=== PATIENT | male | born 1950 | race Caucasian/White ===

== ENCOUNTER 2022-03-13 22:41 | Emergency (ER) | payer MEDICARE, SELFPAY ==
--- NOTE | 2022-03-13 22:47 | ECG_ITS ---
[facility] Test Date: 2022-03-13 Pat Name: Matias Garza Department: Room: Gender: Male [employer]: : 1950 Requested By: Anibal Mendoza Order Number: [id number] Emely MD: Alberto Stone M.D. Measurements Intervals [place] Rate: 42 P: 69 HI: 237 QRS: -9 QRSD: 115 T: 37 QT: 466 QTc: 393 Interpretive Statements SINUS BRADYCARDIA WITH SINUS ARRHYTHMIA WITH FIRST DEGREE AV BLOCK MODERATE INTRAVENTRICULAR CONDUCTION DELAY [110+ ms QRS DURATION] No previous ECG available for comparison Electronically Signed On 03-13-2022 23:25:24 CDT by Alberto Stone M.D. [email or web address]
[2022-03-13 22:53] VITALS: BP 192/50; PULSE 43; RESP 18; TEMP 36.4; O2SAT 97; BMI 23.7
[2022-03-13 22:55] VITALS: BP 124/87; PULSE 76; RESP 18; O2SAT 99
--- NOTE | 2022-03-13 22:59 | W.ED.ABDPA2 ---
HPI - Abdominal Pain General: Chief Complaint: Abdominal Pain Stated Complaint: abd pain, N/V Time Seen by Provider: 03/13/22 22:58 History of Present Illness: 71-year-old male patient comes in today with mid abdominal pain. Patient reports that the pain was so bad he was on the floor with discomfort. Patient did have several episodes of dry heaves with clear liquid. Patient reports some improvement in pain and discomfort since arriving to the ER. Associated Symptoms: Reports nausea and vomiting Review of Systems General: Reports: 10 or more systems reviewed and unremarkable except in HPI and below Card: Denies: chest pain Resp: Denies: dyspnea GI: Reports: abdominal pain, nausea and vomiting : Denies: difficulty urinating Physical Exam Const: COMMON NORMALS: alert HENMT: HEAD & SCALP: normal to inspection Neck/C-Spine: COMMON NORMALS: full ROM Resp: COMMON NORMALS: normal respiratory effort and clear to auscultation bilaterally AUSCULTATION: clear to auscultation bilaterally Cardio: COMMON NORMALS: regular rate RATE: regular rate GI: AUSCULTATION: Yes normoactive bowel sounds PALPATION: Yes Tenderness to palpation present (GI) (Generalized, left lower quadrant) Details: LLQ : BLADDER/KIDNEY EXAM: Yes CVA tenderness on the left Back/Pelvis: GENERAL BACK: Yes CVA tenderness Neuro: SENSORIUM/ORIENTATION: Yes alert Skin: COMMON NORMALS: no rashes or lesions noted GENERAL SKIN EXAM: no rashes or lesions noted Course Vital Signs: Vital signs: Vital Signs Temperature 97.6 F 03/13/22 22:53 Pulse Rate 43 L 03/13/22 22:53 Respiratory Rate 18 03/13/22 22:53 Blood Pressure 192/50 03/13/22 22:53 Pulse Oximetry 97 03/13/22 22:53 MDM - Abdominal Pain Medical Decision Making Patient comes in today with complaints of abdominal pain with some emesis of clear fluid. Patient reports last time he ate was afternoon. On exam patient had some left CVA tenderness and left lower quadrant abdominal tenderness. Respirations were even lungs were clear to auscultation. Skin was warm and dry. Patient was afebrile. Differential diagnosis includes but not limited to pancreatitis, gallbladder disease, renal calculi, diverticulitis. CBC showed a white count 10,000, CMP noted normal liver enzymes and a creatinine 1.1. CT of the abdomen and pelvis noted a approximately a 4 mm stone in the mid ureter on the left side. Reviewed exam with patient recommended treatment for renal calculi. Patient was recommended to follow-up with primary care for further instruction. Return to ER as needed for worsening symptoms. Case management was requested for urology follow-up. Patient reported understanding of care plan need for follow-up or return to the ER. Lab Data : 03/13/22 23:10 03/13/22 23:10 Labs/Radiology: Laboratory Results WBC 10.2 10^3/uL (4.0-10.0) H 03/13/22 23:10 RBC 4.63 10^6/uL (4.1-5.3) 03/13/22 23:10 Hgb 14.1 g/dL (11.7-16.6) 03/13/22 23:10 Hct 41.6 % (42.0-52.0) L 03/13/22 23:10 MCV 89.8 fl (80-94) 03/13/22 23:10 MCH 30.5 pg (28.0-34.0) 03/13/22 23:10 MCHC 33.9 g/dL (30.0-36.0) 03/13/22 23:10 RDW 12.7 % (12.1-15.1) 03/13/22 23:10 Plt Count 195 10^3/cmm (130-400) 03/13/22 23:10 MPV 8.9 fL (7.4-10.4) 03/13/22 23:10 Neut % (Auto) 89.9 % 03/13/22 23:10 Lymph % (Auto) 4.2 % 03/13/22 23:10 [place] % (Auto) 4.5 % 03/13/22 23:10 Eos % (Auto) 0.7 % 03/13/22 23:10 Baso % (Auto) 0.3 % 03/13/22 23:10 Neut # (Auto) 9.21 10^3/uL (1.8-7.7) H 03/13/22 23:10 Lymph # (Auto) 0.4 10^3/uL (0.8-4.8) L 03/13/22 23:10 [place] # (Auto) 0.5 10^3/uL (0.2-0.9) 03/13/22 23:10 Eos # (Auto) 0.1 10^3/uL (0.0-0.8) 03/13/22 23:10 Baso # (Auto) 0.0 10^3/uL (0.0-0.1) 03/13/22 23:10 Nucleated RBC % (auto) 0 % 03/13/22 23:10 Nucleated RBCs # 0.0 /100WBC 03/13/22 23:10 Sodium 137 mmol/L (136-145) 03/13/22 23:10 Potassium 4.4 mmol/L (3.5-5.1) 03/13/22 23:10 Chloride 104 mmol/L (98-107) 03/13/22 23:10 Carbon Dioxide 23 mmol/L (22-29) 03/13/22 23:10 Anion Gap 14.4 (5-19) 03/13/22 23:10 BUN 25 mg/dL (8-23) H 03/13/22 23:10 Creatinine 1.1 mg/dL (0.7-1.2) 03/13/22 23:10 GFR Calculation Not Reportable 03/13/22 23:10 Glucose 161 mg/dL (65-115) H 03/13/22 23:10 Calculated Osmolality 292 mOsm/kg (285-295) 03/13/22 23:10 Calcium 8.9 mg/dL (8.5-10.5) 03/13/22 23:10 Total Bilirubin 0.6 mg/dL (0.15-1.2) 03/13/22 23:10 AST 21 U/L (0-40) 03/13/22 23:10 ALT 11 U/L (0-41) 03/13/22 23:10 Alkaline Phosphatase 74 IU/L (40-130) 03/13/22 23:10 Troponin T Gen 5 ng/L 9 ng/L (0-15) 03/13/22 23:10 Total Protein 7.2 g/dL (6.6-8.7) 03/13/22 23:10 Albumin 4.4 g/dL (3.5-5.2) 03/13/22 23:10 Globulin 2.8 g/dL (1.3-4.6) 03/13/22 23:10 Lipase 26 U/L (13-60) 03/13/22 23:10 EKG Data EKG 1: EKG interpretation date: 03/13/22 EKG interpretation time: 23:23 Interpretation: EKG shows a sinus bradycardia with arrhythmia, prolonged OLVIN. No ST elevation or ectopy is noted. No prior exam was available for comparison. Discharge Plan Discharge Patient Disposition: Home Clinical Impression: Left ureteral stone Condition: Stable Prescriptions: New hydrocodone-acetaminophen 5-325 mg tablet 1 tab PO Q6H PRN (Reason: pain (scale score 7-10)) Qty: 14 0RF ondansetron 4 mg tablet,disintegrating 4 mg PO Q8H PRN (Reason: nausea and vomiting) Qty: 10 0RF tamsulosin 0.4 mg capsule 0.4 mg PO Q24H Qty: 14 0RF Discharge Orders: Discharge ED (Routine); Ordered 03/13/22 Ordered By: Anibal Rich Discharge Diet: Usual diet Discharge Activity: Increase activity as tolerated Patient Instructions: Kidney Stones (ED), Opioid Safety Activity Restrictions/Additional Instructions: Take medications as directed. Drink plenty of fluids. Use acetaminophen and ibuprofen to help control pain. Use hydrocodone for severe pain. Follow-up with urologist for further treatment and evaluation. Return to ER for fever greater than 100.4, uncontrolled abdominal pain, inability to hold fluids down. Coding Level of Care Code ED Ambulatory Service Representative for Chg Fwd Exam Comprehensive
--- NOTE | 2022-03-13 23:05 | CTR_ITS ---
PROCEDURE INFORMATION: Exam: CT Abdomen And Pelvis Without Contrast Exam date and time: 03/13/2022 11:18 PM Age: 71 years old Clinical indication: Nausea and vomiting; Abdominal pain; Generalized; Patient HX: Diffuse abd pain with n/v. ; Additional info: Generalized abd pain, n/v TECHNIQUE: Imaging protocol: Computed tomography of the abdomen and pelvis without contrast. Radiation optimization: All CT scans at this facility use at least one of these dose optimization techniques: automated exposure control; mA and/or kV adjustment per patient size (includes targeted exams where dose is matched to clinical indication); or iterative reconstruction. COMPARISON: No relevant prior studies available. RADIATION DOSE METRICS: Total DLP (mGy-cm): 1219.63 FINDINGS: Liver: Numerous small scattered low-attenuation well-circumscribed liver lesions most likely representing simple cysts. Gallbladder and bile ducts: Normal. No calcified stones. No ductal dilation. Pancreas: Normal. No ductal dilation. Spleen: Extensive calcified granulomas throughout the spleen. Negative for splenomegaly. Adrenal glands: Normal. No mass. Kidneys and ureters: Small nonobstructing stone left kidney lower pole. Obstructing stone left mid ureter measures 3 mm. Left-sided periureteric and perinephric inflammatory fat stranding. Mild severity proximal left collecting system hydroureteronephrosis. Stomach and bowel: Unremarkable. No obstruction. No mucosal thickening. Appendix: No evidence of appendicitis. Intraperitoneal space: Unremarkable. No free air. No significant fluid collection. Vasculature: Diffuse aortoiliac atherosclerosis. Lymph nodes: Unremarkable. No enlarged lymph nodes. Urinary bladder: Unremarkable as visualized. Reproductive: Unremarkable as visualized. Bones/joints: Unremarkable. No acute fracture. The lumbar spine demonstrates moderate discogenic and apophyseal joint degenerative changes at multiple levels. Soft tissues: Unremarkable. CT/CT abdomen pelvis wo con [id number] IMPRESSION: Obstructive uropathy changes of left collecting system secondary to ureterolithiasis.
[2022-03-13] MEDS: sodium chloride 0.9% 1,000 ML 999 ML IV (23:10)
[2022-03-13 23:17] LABS: Basophils % 0.3 %; Eosinophils # 0.1 10^3/uL (0.0-0.8); Eosinophils % 0.7 %; Hematocrit 41.6 % (42.0-52.0); Hemoglobin 14.1 g/dL (11.7-16.6); Lymphocytes # 0.4 10^3/uL (0.8-4.8); Lymphocytes % 4.2 %; Mean Corpuscular HGB Conc 33.9 g/dL (30.0-36.0); Mean Corpuscular Hemoglobin 30.5 pg (28.0-34.0); Mean Corpuscular Volume 89.8 fl (80-94); Mean Platelet Volume 8.9 fL (7.4-10.4); Monocytes # 0.5 10^3/uL (0.2-0.9); Monocytes % 4.5 %; Neutrophils # 9.21 10^3/uL (1.8-7.7); Neutrophils % 89.9 %; Nucleated Red Blood Cells % 0 %; Platelet Count 195 10^3/cmm (130-400); Red Blood Count 4.63 10^6/uL (4.1-5.3); Red Cell Distribution Width 12.7 % (12.1-15.1); White Blood Count 10.2 10^3/uL (4.0-10.0)
[2022-03-13 23:37] LABS: Alanine Aminotransferase 11 U/L (0-41); Albumin Level 4.4 g/dL (3.5-5.2); Alkaline Phosphatase 74 IU/L (40-130); Anion Gap 14.4 (5-19); Aspartate Amino Transferase 21 U/L (0-40); Blood Urea Nitrogen 25 mg/dL (8-23); Calcium 8.9 mg/dL (8.5-10.5); Carbon Dioxide 23 mmol/L (22-29); Chloride 104 mmol/L (98-107); Globulin 2.8 g/dL (1.3-4.6); Glucose 161 mg/dL (65-115); Lipase 26 U/L (13-60); Osmolality Calculated 292 mOsm/kg (285-295); Potassium 4.4 mmol/L (3.5-5.1); Sodium 137 mmol/L (136-145); Total Bilirubin 0.6 mg/dL (0.15-1.2); Total Protein 7.2 g/dL (6.6-8.7); Troponin T (5th) Once 9 ng/L (0-15)
[2022-03-14] VITALS: BP 134/66; PULSE 49; RESP 18; O2SAT 99
[2022-03-14 00:09] VITALS: RESP 18
[2022-03-14] MEDS: ondansetron 2 mg/ML SDV 2 mL 4 MG IVP (00:09)
[2022-03-14] MEDS: morphine 4 mg/mL SDV 1 mL 2 MG IVP (00:09)
[2022-03-14 00:36] VITALS: BP 134/66; PULSE 49; RESP 18; O2SAT 99
== END 2022-03-14 00:37 | disposition home or self-care (01) ==
PROVIDERS: Emergency Provider Nurse Practitioner Family
DX: N20.1 Calculus of ureter (principal)
CPT/HCPCS: 74176; 80053; 83690; 84484; 85025; 93005; 96361; 96374; 96375; 99285; J2270; J2405; J7030